=== PATIENT | male | born 1965 | race Caucasian/White ===

== ENCOUNTER 2019-10-04 13:29 | Emergency (ER) | payer MEDICAID ==
[~2019-10-04] VITALS: Ht 167.6 cm; Wt 70.0 kg
[~2019-10-04 13:29] MED LIST: GEMF600T5 PO; METF-414 PO
[2019-10-04] MEDS ORDERED: ONDANSETRON HCL 4MG/2ML INJ IV STA (14:32)
[2019-10-04] MEDS ORDERED: MORPHINE SULFATE 4 MG/ML CPJ (NOT FOR IM USE) IV STA (14:32)
[2019-10-04] MEDS ORDERED: ACETAMINOPHEN 500MG TABLET PO ONE (15:45)
[2019-10-04 16:12] LABS: CHLORIDE 102 mEq/L (98-107)
[2019-10-04 17:06] LABS: CLARITY URINE CLEAR (CLEAR); COLOR URINE YELLOW (YELLOW); KETONES URINE 3+ (NEGATIVE); LEUKOCYTE ESTERASE URINE NEGATIVE (NEGATIVE); NITRITE URINE NEGATIVE (NEGATIVE); OCCULT BLOOD URINE NEGATIVE (NEGATIVE); PROTEIN URINE TRACE (NEGATIVE); SPECIFIC GRAVITY URINE 1.023 (1.005-1.030); UROBILINOGEN URINE 0.2 E.U./dL (0.2-1.0)
[2019-10-04 17:23] LABS: BASOPHILS % 0.2 % (0.0-2.0); EOSINOPHILS % 0.1 % (0.0-5.0); HEMOGLOBIN. 15.2 g/dL (14.0-18.0); LYMPHOCYTES % 11.1 % (20.0-50.0); MEAN CORPUSCULAR HEMOGLOBIN 28.7 pg (28.0-32.0); MEAN CORPUSCULAR VOLUME 83.2 fL (80.0-94.0); MEAN PLATELET VOLUME 10.7 fl (7.4-10.4); MONOCYTES % 6.3 % (2.0-8.0); NEUTROPHILS % 82.3 % (40.0-76.0); PLATELET 240 x1000/uL (130-400); RED BLOOD CELL COUNT 5.29 mill/uL (4.7-6.1); RED CELL DISTRIBUTION WIDTH 13.1 % (11.6-14.6)
[2019-10-04] MEDS ORDERED: IOHEXOL-300 100 ML BOTTLE ONE (18:15)
[2019-10-04 18:30] VITALS: BP 122/83
== END 2019-10-04 19:00 | disposition home or self-care (01) ==
LOC: ER 13:29 → CANBEDREQ 20:37
DX: R10.31 Right lower quadrant pain (principal); R07.89 Other chest pain; R50.9 Fever, unspecified; R19.7 Diarrhea, unspecified; E11.9 Type 2 diabetes mellitus without complications; E78.00 Pure hypercholesterolemia, unspecified; I10 Essential (primary) hypertension; I25.2 Old myocardial infarction; Z98.61 Coronary angioplasty status
CPT/HCPCS: 36415; 71045; 74177; 80053; 81003; 83690; 83880; 84484; 85025; 86850; 86900; 86901; 93005; 96374; 99285; J2405; Q9967